=== PATIENT | female | born 1960 | race Caucasian/White ===

== ENCOUNTER → 2018-06-14 11:15 | Outpatient (CLI) | payer BC, SELFPAY ==
[2018-06-16 13:07] LABS: HPV Reflexed? NOT INDICATED
== END ==
PROVIDERS: Referring Provider Obstetrics & Gynecology; Visit Provider Obstetrics & Gynecology
DX: Z12.4 Encounter for screening for malignant neoplasm of cervix (principal)
CPT/HCPCS: 87624; 88175; G0145

== ENCOUNTER → 2020-03-27 07:19 | Outpatient (CLI) | payer BC, SELFPAY ==
--- NOTE | 2020-03-26 | LES_PTH ---
PATIENT: MIMI MCNAMARA LOC: [facility] U#:[id number] AGE/SX: 65/F ROOM: RE03/27/[address]: Dr. Mike Steele MD : 1960 BED: DIS: SPEC #: [id number] RECD: 03/26/20 17:02 STATUS: JAMES EZIO #: [id number] JIM: 03/26/20 00:[address]: Mike Steele DEPT: SURGICAL PATHOLOGY RECD BY: Anaya Diaz ENTERED: 03/27/20 10:36 SP TYPE: Lesion OTHR DR: No Primary Care Phys Tissues: A - Skin of face, NOS B - Skin of lip, NOS Procedures: Surgery Specimen Level IV HEADER OPERATION: Shave excision lesions PRE-OP DIAGNOSIS: Enlarging lesions right cheek and left upper lip TISSUE SUBMITTED: A - Right cheek, B - Left upper lip MICROSCOPIC DIAGNOSIS A. Right cheek lesion, shave biopsy: Seborrheic keratosis with mild actinic keratosis features. Solar elastosis. Negative for malignancy. B. Left upper lip lesion, shave biopsy: Intradermal nevus extending up to the deep margin of the specimen. ROSA:angela 03/28/2020 MICROSCOPIC DESCRIPTION Slides are reviewed. GROSS DESCRIPTION A - Received in fixative is one container labeled with the patient's name and designated right cheek. The specimen consists of a shave biopsy of castaneda-white to light brown skin measuring 0.7 x 0.7 x 0.1 cm. The specimen is inked and submitted entirely in one cassette. It will be sectioned at the time of embedding. B - Received in fixative is one container labeled with the patient's name and designated left upper lip. The specimen consists of a shave biopsy of castaneda to light brown skin measuring 0.5 cm in diameter and 0.1 cm in thickness. The specimen is inked and submitted entirely in one cassette. It will be bisected at the time of embedding. / ROSA:angela 03/27/20 TC:1 CPT: 18219 x2
== END ==
LOC: LABSPEC 07:24
PROVIDERS: Referring Provider Surgery; Visit Provider Surgery
DX: L82.1 Other seborrheic keratosis (principal); L57.0 Actinic keratosis; W89.9XXA Exposure to unspecified man-made visible and ultraviolet light, initial encounter; Y92.9 Unspecified place or not applicable; Y99.9 Unspecified external cause status; L57.8 Other skin changes due to chronic exposure to nonionizing radiation
CPT/HCPCS: 88305